=== PATIENT | male | born 1935 | race Hispanic/Latino ===

== ENCOUNTER 2019-10-21 07:18 | Outpatient (CLI) | payer MEDICARE ==
[2019-10-21 10:15] LABS: #Eosinphils 0.2 thou/uL (0.0-0.7); #Lymphocytes 2.1 thou/uL (1.20-3.40); #Monocytes 0.8 thou/uL (0.11-0.59); #Neutrophils 4.8 thou/uL (1.40-6.50); %Basophils 0.6 % (0.0-1.0); %Eosinophils 2.2 % (0.0-10.0); %Lymphocytes 27.1 % (21.0-51.0); %Monocytes 9.5 % (0.0-10.0); %Neutrophils 60.6 % (42.0-75.0); Hemoglobin 15.1 g/dL (14.0-18.0); Mean Corpuscular HGB CONC 32.9 g/dL (32.0-36.0); Mean Corpuscular Hemoglobin 30.3 pg (27.0-31.0); Mean Corpuscular Volume 91.9 fL (78.0-98.0); Mean Platelet Volume 8.3 fL (7.4-10.4); Platelet Count 222 thou/uL (130-400); RBC Distribution Width 12.2 % (11.5-14.5); Red Blood Cell (RBC) Count 4.98 mill/uL (4.70-6.10); White Blood Cell (WBC) Count 7.9 thou/uL (4.8-10.8)
[2019-10-21 10:43] LABS: ALT (SGPT) 16 U/L (8-55); AST (SGOT) 24 U/L (5-34); Albumin 4.1 g/dL (3.4-4.8); Alkaline Phosphatase 70 U/L (40-110); Anion Gap 12 mmol/L (10-20); BUN (Urea Nitrogen) 17 mg/dL (8.4-25.7); Bilirubin, Total 0.5 mg/dL (0.2-1.2); Calc. Creatinine Clearance 0 mL/min (70-130); Calcium 9.5 mg/dL (7.8-10.44); Carbon Dioxide 28 mmol/L (23-31); Chloride 100 mmol/L (98-107); Estimated GFR-MDRD 57; Globulin 3.6 g/dL (2.4-3.5); Glucose 101 mg/dL (83-110); Potassium 3.9 mmol/L (3.5-5.1); Protein, Total 7.7 g/dL (5.8-8.1); Sodium 136 mmol/L (136-145)
== END 2019-10-21 07:19 | disposition home or self-care (01) ==
LOC: LABBT 07:18
PROVIDERS: ATTEND Internal Medicine Cardiovascular Disease
DX: Z01.812 Encounter for preprocedural laboratory examination (principal); I35.0 Nonrheumatic aortic (valve) stenosis
CPT/HCPCS: 80053; 85025

== ENCOUNTER 2020-05-18 06:36 | Emergency (ER) | payer MEDICARE | END 2020-05-18 07:28 | disposition home or self-care (01) | LOC: ERS 06:36 | DX: I10 Essential (primary) hypertension (principal) | CPT/HCPCS: 99283 ==

== ENCOUNTER 2020-05-23 19:52 | Inpatient (IN) | payer MEDICARE, OTHER ==
[2020-05-23 20:53] LABS: #Basophils 0.1 thou/uL (0.0-0.2); #Eosinphils 0.2 thou/uL (0.0-0.7); #Lymphocytes 2.3 thou/uL (1.20-3.40); #Monocytes 0.6 thou/uL (0.11-0.59); #Neutrophils 4.2 thou/uL (1.40-6.50); %Basophils 0.9 % (0.0-1.0); %Eosinophils 2.7 % (0.0-10.0); %Lymphocytes 31.6 % (21.0-51.0); %Monocytes 7.9 % (0.0-10.0); %Neutrophils 56.9 % (42.0-75.0); Mean Corpuscular HGB CONC 34.1 g/dL (32.0-36.0); Mean Corpuscular Hemoglobin 32.1 pg (27.0-31.0); Mean Corpuscular Volume 94.2 fL (78.0-98.0); Mean Platelet Volume 8.6 fL (7.4-10.4); Platelet Count 205 thou/uL (130-400); RBC Distribution Width 12.6 % (11.5-14.5); Red Blood Cell (RBC) Count 4.98 mill/uL (4.70-6.10); White Blood Cell (WBC) Count 7.4 thou/uL (4.8-10.8)
--- NOTE | 2020-05-23 20:55 | RAD ---
Portable frontal chest radiograph: 05/23/2020 COMPARISON: 03/03/2008 HISTORY: Generalized weakness, chest pain FINDINGS: There is mild prominence of the cardiac silhouette and mild pulmonary vascular prominence w ith no pneumothorax or pleural fluid. No focal consolidation or alveolar edema. IMPRESSION: No focal consolidation or alveolar edema.
[2020-05-23 21:13] LABS: ALT (SGPT) 30 U/L (8-55); AST (SGOT) 36 U/L (5-34); Albumin 4.2 g/dL (3.4-4.8); Alkaline Phosphatase 99 U/L (40-110); Anion Gap 12 mmol/L (10-20); BUN (Urea Nitrogen) 25 mg/dL (8.4-25.7); Bilirubin, Total 0.8 mg/dL (0.2-1.2); Calc. Creatinine Clearance 0 mL/min (70-130); Calcium 9.5 mg/dL (7.8-10.44); Carbon Dioxide 28 mmol/L (23-31); Chloride 102 mmol/L (98-107); Estimated GFR-MDRD 43; Globulin 3.9 g/dL (2.4-3.5); Glucose 100 mg/dL (83-110); Potassium 3.7 mmol/L (3.5-5.1); Protein, Total 8.1 g/dL (5.8-8.1); Sodium 138 mmol/L (136-145)
[2020-05-23 21:35] LABS: CKMB 2.1 ng/mL (0-6.6)
[2020-05-23] MEDS ORDERED: Aspirin Chewable 81 MG TAB ONE (23:06)
[2020-05-23] MEDS ORDERED: Acetaminophen 325 MG TAB PO PRN (23:41)
[2020-05-23] MEDS ORDERED: Senokot S 8.6-50 MG TAB PO PRN (23:41)
[2020-05-24 00:43] LABS: Troponin I 0.053 ng/mL (< 0.028)
--- NOTE | 2020-05-24 01:32 | PDOC.HHP ---
Hospitalist HPI - History of Present Illness Light headedness / faint History of Present Illness: Mr Jesus is a very pleasant 84M who reports he was at home tonight watching TV when he started feeling lightheaded and felt like he was going to pass out. He denies any other symptoms. Reports he felt like this once, a long time ago but it went away and he did not do anything about it. He denies having a history of Afib/Aflutter. He reports Dr. Myles told him that one of his heart valves did not open/close all the way but as long as he did not get too exertional, he would be fine. He reports it has been almost a year since he has seen Dr. Myles. He does one have cardiac stent which was placed "many years ago". He takes HTN medications and an aspirin daily. Hospitalist ROS - Review of Systems Constitutional: denies: fever, chills, sweats, weakness, malaise, other Eyes: denies: pain, vision change, conjunctivae inflammation, eyelid inflammation, redness, other ENT: denies: ear pain, ear discharge, nose pain, nose discharge, nose congestion, mouth pain, mouth swelling, throat pain, throat swelling, other Respiratory: denies: cough, dry, shortness of breath, hemoptysis, SOB with excertion, pleuritic pain, sputum, wheezing, other Cardiovascular: reports: light headedness, other (near syncope) Gastrointestinal: denies: nausea, vomiting, abdominal pain, diarrhea, constipation, melena, hematochezia, other Genitourinary: denies: dysuria, frequency, incontinence, hematuria, retention, other Musculoskeletal: denies: neck pain, shoulder pain, arm pain, back pain, hand pain, leg pain, foot pain, other Neurological: denies: weakness, numbness, incoordination, change in speech, confusion, seizures, other Hospitalist History - Past Medical History Cardiac: reports: CAD, HTN, Valve insufficiency Pulmonary: reports: no pertinent history FIN[employer]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: no pertinent history Gastrointestinal: reports: no pertinent history Heme/Onc: reports: no pertinent history ENT: reports: no pertinent history Renal/: reports: no pertinent history, Chronic renal failure - Past Surgical History Other Surgical History: cardiac stent x1 - Family History Family History: reports: cardiac disorder - Social History Smoking Status: Never smoker Alcohol: reports: None, Occassional Drugs: reports: none Living Situation: With Family Activity level: independent ambulation - Exam General Appearance: awake alert Eye: PERRL ENT: normocephalic atraumatic Neck: supple, no JVD Heart: irregular Respiratory: CTAB, normal chest expansion Gastrointestinal: soft, non-tender Skin: normal turgor Neurological: normal sensation to touch Musculoskeletal: normal strength Psychiatric: normal affect, A&O x 3 Hospitalist Results - Labs Result Diagrams: 05/23/20 20:40 05/23/20 20:40 Lab results: WBC 7.4 thou/uL (4.8-10.8) 05/23/20 20:40 Hgb 16.0 g/dL (14.0-18.0) 05/23/20 20:40 Hct 47.0 % (42.0-52.0) 05/23/20 20:40 MCV 94.2 fL (78.0-98.0) 05/23/20 20:40 Plt Count 205 thou/uL (130-400) 05/23/20 20:40 Neutrophils % 56.9 % (42.0-75.0) 05/23/20 20:40 Sodium 138 mmol/L (136-145) 05/23/20 20:40 Potassium 3.7 mmol/L (3.5-5.1) 05/23/20 20:40 Chloride 102 mmol/L (98-107) 05/23/20 20:40 Carbon Dioxide 28 mmol/L (23-31) 05/23/20 20:40 BUN 25 mg/dL (8.4-25.7) 05/23/20 20:40 Creatinine 1.55 mg/dL (0.7-1.3) H 05/23/20 20:40 Glucose 100 mg/dL (83-110) 05/23/20 20:40 Calcium 9.5 mg/dL (7.8-10.44) 05/23/20 20:40 Total Bilirubin 0.8 mg/dL (0.2-1.2) 05/23/20 20:40 AST 36 U/L (5-34) H 05/23/20 20:40 ALT 30 U/L (8-55) 05/23/20 20:40 Alkaline Phosphatase 99 U/L (40-110) 05/23/20 20:40 CK-MB (CK-2) 2.1 ng/mL (0-6.6) 05/23/20 20:40 Troponin I 0.053 ng/mL (< 0.028) H 05/23/20 23:53 Serum Total Protein 8.1 g/dL (5.8-8.1) 05/23/20 20:40 Albumin 4.2 g/dL (3.4-4.8) 05/23/20 20:40 - EKG Interpretation EKG: HR 60 Atrial flutter with variable AV block, PVCs, ST depression V4-V6 Hospitalist H&P A/P - Problem (1) Hypertension Code(s): I10 - ESSENTIAL (PRIMARY) HYPERTENSION Status: Acute (2) Aortic valve insufficiency Code(s): I35.1 - NONRHEUMATIC AORTIC (VALVE) INSUFFICIENCY Status: Acute (3) Near syncope Status: Acute (4) CAD (coronary artery disease) Code(s): I25.10 - ATHSCL HEART DISEASE OF [place] CORONARY ARTERY W/O ANG PCTRS Status: Chronic (5) Atrial flutter Code(s): I48.92 - UNSPECIFIED ATRIAL FLUTTER Status: Acute (6) Kidney disease, chronic, stage III (GFR 30-59 ml/min) Code(s): N18.30 - CHRONIC KIDNEY DISEASE, STAGE 3 UNSPECIFIED Status: Acute - Plan Plan: Place on Telemetry Echocardiogram in AM Cardiology consult Trend troponins Restart home HTN meds Lovenox and SCDs for DVT prophalyxis; pepcid bid for PUD prevention Case discussed with Dr. Morales who agrees with plan
[2020-05-24 02:32] VITALS: BMI 25.0
[2020-05-24 02:51] LABS: #Basophils 0.1 thou/uL (0.0-0.2); #Eosinphils 0.1 thou/uL (0.0-0.7); #Lymphocytes 1.8 thou/uL (1.20-3.40); #Monocytes 0.7 thou/uL (0.11-0.59); #Neutrophils 5.2 thou/uL (1.40-6.50); %Basophils 1.2 % (0.0-1.0); %Eosinophils 1.8 % (0.0-10.0); %Monocytes 8.6 % (0.0-10.0); %Neutrophils 65.5 % (42.0-75.0); Hemoglobin 13.9 g/dL (14.0-18.0); Mean Corpuscular HGB CONC 32.7 g/dL (32.0-36.0); Mean Platelet Volume 8.6 fL (7.4-10.4); Platelet Count 200 thou/uL (130-400); RBC Distribution Width 12.6 % (11.5-14.5); Red Blood Cell (RBC) Count 4.47 mill/uL (4.70-6.10); White Blood Cell (WBC) Count 7.9 thou/uL (4.8-10.8)
[2020-05-24 03:08] LABS: ALT (SGPT) 25 U/L (8-55); AST (SGOT) 23 U/L (5-34); Albumin 3.5 g/dL (3.4-4.8); Alkaline Phosphatase 74 U/L (40-110); Anion Gap 14 mmol/L (10-20); BUN (Urea Nitrogen) 23 mg/dL (8.4-25.7); Bilirubin, Total 0.7 mg/dL (0.2-1.2); Calc. Creatinine Clearance 42 mL/min (70-130); Calcium 8.9 mg/dL (7.8-10.44); Carbon Dioxide 24 mmol/L (23-31); Chloride 105 mmol/L (98-107); Estimated GFR-MDRD 53; Globulin 3.1 g/dL (2.4-3.5); Glucose 99 mg/dL (83-110); Potassium 3.7 mmol/L (3.5-5.1); Protein, Total 6.6 g/dL (5.8-8.1); Sodium 139 mmol/L (136-145)
[2020-05-24 03:10] LABS: Troponin I 0.041 ng/mL (< 0.028)
[2020-05-24] MEDS ORDERED: Enoxaparin Sodium 40 MG/0.4 ML SYRINGE SC SCH (09:00)
[2020-05-24] MEDS: Lisinopril/Hydrochlorothiazide 20/25 mg Tablet PO SCH (09:16)
[2020-05-24] MEDS: Famotidine 20 MG TAB PO SCH (09:17)
[2020-05-24] MEDS: Aspirin 81 mg Enteric Coated Tablet PO SCH (09:17)
[2020-05-24 12:40] LABS: SARS-CoV-2 MS2 Positive; SARS-CoV-2 N Gene Negative; SARS-CoV-2 S Gene Negative; SARS-CoV-2 by NAA Not Detected (NotDetected); SARS-CoV-2 orf1ab Negative
--- NOTE | 2020-05-24 12:52 | PDOC.HOSPP ---
- Subjective Encounter Date: 05/24/20 Subjective: The patient denies any chest pain, dizziness, or palpitations. - Objective Vital Signs & Weight: Vital Signs (12 hours) Temp Pulse Resp BP BP BP BP 05/24/20 11:10 98.2 F 52 L 16 114/59 L 05/24/20 09:16 51 L 135/63 05/24/20 07:10 97.6 F 44 L 16 129/64 05/24/20 04:00 98.3 F 52 L 16 126/59 L 05/24/20 01:08 97.9 F 60 16 182/86 H Pulse Ox 05/24/20 11:10 97 05/24/20 09:16 05/24/20 07:10 97 05/24/20 04:00 97 05/24/20 01:08 96 Weight Weight 150 lb I&O: 05/23/20 05/24/20 05/25/20 06:59 06:59 06:59 Intake Total 240 Balance 240 Result Diagrams: 05/24/20 02:41 05/24/20 02:41 Hospitalist ROS - Medication Medications: Active Medications Generic Name Dose Route Start Last Admin Trade Name Freq PRN Reason Stop Dose Admin Aspirin 81 mg 05/24/20 09:00 05/24/20 09:17 Aspirin 81 Mg Enteric Coated Tablet PO 81 mg DAILY KATHERINE Administration Enoxaparin Sodium 40 mg 05/24/20 09:00 05/24/20 09:18 Enoxaparin Sodium 40 Mg/0.4 Ml Syringe SC 40 mg 0900 KATHERINE Administration Famotidine 20 mg 05/24/20 09:00 05/24/20 09:17 Famotidine 20 Mg Tab PO 20 mg QAM KATHERINE Administration Lisinopril/HCTZ 1 tab 05/24/20 09:00 05/24/20 09:16 Lisinopril/Hydrochlorothiazide 20/25 Mg Tablet PO 1 tab DAILY KATHERINE Administration - Exam General Appearance: awake alert ENT: normocephalic atraumatic Neck: supple, no JVD Respiratory: normal chest expansion, no tachypnea Extremities: no cyanosis, no clubbing Neurological: cranial nerve grossly intact, no focal deficits Hosp A/P (1) Bradycardia Code(s): R00.1 - BRADYCARDIA, UNSPECIFIED Status: Acute (2) Aortic valve insufficiency Code(s): I35.1 - NONRHEUMATIC AORTIC (VALVE) INSUFFICIENCY Status: Acute (3) Atrial flutter Code(s): I48.92 - UNSPECIFIED ATRIAL FLUTTER Status: Acute (4) Kidney disease, chronic, stage III (GFR 30-59 ml/min) Code(s): N18.30 - CHRONIC KIDNEY DISEASE, STAGE 3 UNSPECIFIED Status: Acute (5) Near syncope Status: Acute (6) CAD (coronary artery disease) Code(s): I25.10 - ATHSCL HEART DISEASE OF [place] CORONARY ARTERY W/O ANG PCTRS Status: Chronic - Plan New onset atrial flutter with variable block and bradycardic response causing dizziness. Hold chronotropic medications. Echocardiogram. Cardiology consultation.
[2020-05-24] MEDS: Enoxaparin Sodium 60 MG/0.6 ML SYRINGE SC SCH (21:02)
--- NOTE | 2020-05-25 01:22 | CON ---
DATE OF CONSULTATION: 05/24/2020 PRIMARY SHINGLE CUTTER: Fabrizio Myles MD REASON FOR CONSULTATION AND ADMISSION: Atrial fibrillation with a slow ventricular response. HISTORY OF PRESENT ILLNESS: Mr. Jesus is a delightful 84-year-old gentleman who has been doing well up until this admission. He had the sudden onset of weakness and fatigue. He knew something this did not seem right, started feeling lightheaded. He felt like he might even pass out. He went to the emergency room, was found to be in atrial fibrillation with a relatively slow ventricular response. No chest pain or pressure. PAST MEDICAL HISTORY: 1. History of coronary artery disease with previous stent implantation. 2. History of first-degree AV block. 3. History of nonrheumatic aortic valve stenosis. MEDICATIONS: Prior to admission: 1. Lisinopril/HCTZ. 2. Metoprolol succinate 25 mg. 3. Aspirin 81 mg daily. PREVIOUS EVALUATION: The patient had an echocardiogram done in 2018, ejection fraction 55% to 60%. aortic stenosis was noted. REVIEW OF SYSTEMS: CONSTITUTIONAL: No significant weight gain or loss of vision. No changes in hearing. PULMONARY: No changes in pulmonary. No cough or wheezing. CARDIAC: No chest pain. GASTROINTESTINAL: No nausea, vomiting, or diarrhea. PHYSICAL EXAMINATION: GENERAL: This is a very pleasant elderly gentleman, in no distress. He says he feels well. VITAL SIGNS: Blood pressure 130/60, pulse 52 irregular. LUNGS: Clear. CARDIAC: Irregularly irregular. Soft systolic murmur. No diastolic murmur. ABDOMEN: Soft and nontender. EXTREMITIES: Warm and dry. No clubbing, no cyanosis or edema. IMAGING: EKG reveals atrial fibrillation with a slow ventricular response. ASSESSMENT: 1. History of aortic stenosis. 2. New onset of atrial fibrillation with a slow rate (low ventricular response). 3. History first-degree atrioventricular block. PLAN: 1. Increased the Lovenox per kg twice a day. 2. Consideration for cardioversion. We will need transesophageal echo first. 3. Dr. Myles to return tomorrow to further evaluate this gentleman. 4. Echocardiogram revealed what appeared to be severe aortic stenosis. Job ID: [id number]
[2020-05-25] MEDS: Enoxaparin Sodium 60 MG/0.6 ML SYRINGE SC SCH ×2 (10:08→21:24)
[2020-05-25] MEDS: Lisinopril/Hydrochlorothiazide 20/25 mg Tablet PO SCH (10:09)
[2020-05-25] MEDS: Aspirin 81 mg Enteric Coated Tablet PO SCH (10:09)
[2020-05-25] MEDS: Famotidine 20 MG TAB PO SCH (10:09)
--- NOTE | 2020-05-25 12:50 | PDOC.HOSPP ---
- Subjective Encounter Date: 05/25/20 Subjective: No chest pain, palpitations, or shortness of breath. - Objective Vital Signs & Weight: Vital Signs (12 hours) Temp Pulse Resp BP Pulse Ox 05/25/20 11:40 98.9 F 51 L 16 118/56 L 97 05/25/20 10:09 50 L 05/25/20 07:45 98.0 F 50 L 16 153/77 H 97 05/25/20 04:00 98.2 F 61 18 130/62 96 Weight Weight 150 lb 12.8 oz I&O: 05/24/20 05/25/20 05/26/20 06:59 06:59 06:59 Intake Total 240 380 Balance 240 380 Result Diagrams: 05/24/20 02:41 05/24/20 02:41 Hospitalist ROS - Medication Medications: Active Medications Generic Name Dose Route Start Last Admin Trade Name Freq PRN Reason Stop Dose Admin Aspirin 81 mg 05/24/20 09:00 05/25/20 10:09 Aspirin 81 Mg Enteric Coated Tablet PO 81 mg DAILY KATHERINE Administration Enoxaparin Sodium 60 mg 05/24/20 21:00 05/25/20 10:08 Enoxaparin Sodium 60 Mg/0.6 Ml Syringe SC 60 mg 0900,2100 KATHERINE Administration Famotidine 20 mg 05/24/20 09:00 05/25/20 10:09 Famotidine 20 Mg Tab PO 20 mg QAM KATHERINE Administration Lisinopril/HCTZ 1 tab 05/24/20 09:00 05/25/20 10:09 Lisinopril/Hydrochlorothiazide 20/25 Mg Tablet PO 1 tab DAILY KATHERINE Administration - Exam General Appearance: awake alert ENT: normocephalic atraumatic Neck: supple, no JVD Heart: no gallops, irregular, murmur present Respiratory: normal chest expansion, no tachypnea Extremities: no cyanosis Neurological: cranial nerve grossly intact, no focal deficits Hosp A/P (1) Atrial fibrillation with slow ventricular response Code(s): I48.91 - UNSPECIFIED ATRIAL FIBRILLATION Status: Acute (2) Bradycardia Code(s): R00.1 - BRADYCARDIA, UNSPECIFIED Status: Acute (3) Aortic valve insufficiency Code(s): I35.1 - NONRHEUMATIC AORTIC (VALVE) INSUFFICIENCY Status: Acute (4) Kidney disease, chronic, stage III (GFR 30-59 ml/min) Code(s): N18.30 - CHRONIC KIDNEY DISEASE, STAGE 3 UNSPECIFIED Status: Acute (5) Near syncope Status: Acute (6) CAD (coronary artery disease) Code(s): I25.10 - ATHSCL HEART DISEASE OF [place] CORONARY ARTERY W/O ANG PCTRS Status: Chronic (7) Aortic stenosis Code(s): I35.0 - NONRHEUMATIC AORTIC (VALVE) STENOSIS Status: Acute - Plan New onset atrial flutter/fibrillation with slow ventricular response. Holding chronotropic medications. The patient is on therapeutic Lovenox. Awaiting cardiology evaluation.
[2020-05-25] MEDS ORDERED: Communication Order-Pharmacy FS SCH (14:00)
--- NOTE | 2020-05-25 14:04 | PRG ---
DATE OF SERVICE: 05/25/2020 SUBJECTIVE: Mr. Jesus is doing better. Rate appears to be controlled. Mr. Jesus does have a previous history of severe aortic stenosis on echo. He recently had a presyncopal event. OBJECTIVE: VITAL SIGNS: Blood pressure pulse 51, temperature 98.9. LUNGS: Clear to auscultation. HEART: Irregularly irregular. ABDOMEN: Soft, nontender, nondistended. EXTREMITIES: No edema. IMPRESSION: 1. New-onset atrial fibrillation. 2. Severe aortic stenosis. 3. Coronary artery disease. 4. Status post stent placement. RECOMMENDATIONS: I have had much difficulty on trying to get Mr. Jesus's workup for aortic stenosis. He has had symptoms as an outpatient, but has opted to not proceed with any further testing. At this point, I would recommend coronary angiography plus PCI. I discussed procedure in full detail with Mr. Jesus. Risks include, but not limited to the following: , stroke, DC, need for emergency surgery, loss of limb, bleeding, and infection, as well as a reaction to the dye causing kidney failure and needing long-term dialysis. I also discussed the risks of PCI to include all of the above including coronary dissection and perforation in addition to acute stent thrombosis and restenosis. All questions about the procedure were answered. Given the above, the patient agreed to proceed with coronary angiography and possible PCI. He gave consent. All questions answered. Given the above, the patient agreed to proceed with a procedure. We will also proceed with aortic stenosis study. Job ID: [id number]
[2020-05-26] MEDS: Sodium Chloride 0.9% 1,000 ML IV SCH ×2 (05:53→17:45)
[2020-05-26] MEDS ORDERED: Fentanyl 100 MCG/2 ML VIAL ONE (07:20)
[2020-05-26] MEDS ORDERED: Midazolam HCl 2 mg/2 ml Vial ONE (07:20)
[2020-05-26] MEDS ORDERED: Acetaminophen/Codeine 30-300mg Tablet PO PRN ×2 (08:04)
[2020-05-26] MEDS ORDERED: Nitroglycerin 0.4 MG TAB (25 Tab Bottle) SL PRN (08:04)
[2020-05-26] MEDS ORDERED: Sodium Chloride 0.9% 200 ML IV PRN (08:04)
[2020-05-26] MEDS ORDERED: Iopamidol 370 76% 100 ML VIAL ONE ×2 (09:03→10:45)
[2020-05-26] MEDS: Lisinopril/Hydrochlorothiazide 20/25 mg Tablet PO SCH (09:14)
[2020-05-26] MEDS: Famotidine 20 MG TAB PO SCH (09:15)
[2020-05-26] MEDS: Aspirin 81 mg Enteric Coated Tablet PO SCH (09:15)
--- NOTE | 2020-05-26 14:28 | PDOC.HOSPP ---
- Subjective Encounter Date: 05/26/20 Subjective: No new complaints. - Objective Vital Signs & Weight: Vital Signs (12 hours) Temp Pulse Resp BP Pulse Ox 05/26/20 12:00 98.5 F 57 L 16 140/67 98 05/26/20 09:18 97.7 F 58 L 16 116/56 L 98 05/26/20 04:12 97.4 F L 43 L 16 144/69 H 96 Weight Admit Weight 150 lb Weight 148 lb I&O: 05/25/20 05/26/20 05/27/20 06:59 06:59 06:59 Intake Total 380 240 Balance 380 240 Result Diagrams: 05/24/20 02:41 05/24/20 02:41 Hospitalist ROS - Medication Medications: Active Medications Generic Name Dose Route Start Last Admin Trade Name Freq PRN Reason Stop Dose Admin Aspirin 81 mg 05/24/20 09:00 05/26/20 09:15 Aspirin 81 Mg Enteric Coated Tablet PO 81 mg DAILY KATHERINE Administration Famotidine 20 mg 05/24/20 09:00 05/26/20 09:15 Famotidine 20 Mg Tab PO 20 mg QAM KATHERINE Administration Sodium Chloride 1,000 mls @ 100 mls/hr 05/26/20 06:00 05/26/20 05:53 Normal Saline 0.9% IV 1,000 mls .Q10H KATHERINE Administration - Exam General Appearance: awake alert ENT: normocephalic atraumatic Neck: supple, no JVD Heart: irregular Respiratory: normal chest expansion, no tachypnea Extremities: no cyanosis, no clubbing Neurological: cranial nerve grossly intact, no focal deficits Hosp A/P (1) Atrial fibrillation with slow ventricular response Code(s): I48.91 - UNSPECIFIED ATRIAL FIBRILLATION Status: Acute (2) Bradycardia Code(s): R00.1 - BRADYCARDIA, UNSPECIFIED Status: Acute (3) Aortic valve insufficiency Code(s): I35.1 - NONRHEUMATIC AORTIC (VALVE) INSUFFICIENCY Status: Acute (4) Kidney disease, chronic, stage III (GFR 30-59 ml/min) Code(s): N18.30 - CHRONIC KIDNEY DISEASE, STAGE 3 UNSPECIFIED Status: Acute (5) Near syncope Status: Acute (6) CAD (coronary artery disease) Code(s): I25.10 - ATHSCL HEART DISEASE OF [place] CORONARY ARTERY W/O ANG PCTRS Status: Chronic (7) Aortic stenosis Code(s): I35.0 - NONRHEUMATIC AORTIC (VALVE) STENOSIS Status: Acute - Plan New onset atrial flutter/fibrillation with slow ventricular response. Holding chronotropic medications. The patient is on therapeutic Lovenox. Status post cardiac cath showing three-vessel disease and severe aortic stenosis. Cardiothoracic surgery were consulted for further evaluation.
[2020-05-26 21:06] LABS: #Basophils 0.1 thou/uL (0.0-0.2); #Eosinphils 0.1 thou/uL (0.0-0.7); #Lymphocytes 1.6 thou/uL (1.20-3.40); #Monocytes 0.9 thou/uL (0.11-0.59); #Neutrophils 6.7 thou/uL (1.40-6.50); %Basophils 0.5 % (0.0-1.0); %Eosinophils 1.3 % (0.0-10.0); %Lymphocytes 17.4 % (21.0-51.0); %Monocytes 9.6 % (0.0-10.0); %Neutrophils 71.2 % (42.0-75.0); Hemoglobin 14.1 g/dL (14.0-18.0); Mean Corpuscular HGB CONC 33.1 g/dL (32.0-36.0); Mean Corpuscular Hemoglobin 31.1 pg (27.0-31.0); Mean Corpuscular Volume 93.7 fL (78.0-98.0); Mean Platelet Volume 8.7 fL (7.4-10.4); Platelet Count 196 thou/uL (130-400); RBC Distribution Width 12.5 % (11.5-14.5); Red Blood Cell (RBC) Count 4.55 mill/uL (4.70-6.10); White Blood Cell (WBC) Count 9.4 thou/uL (4.8-10.8)
[2020-05-26 21:27] LABS: Anion Gap 10 mmol/L (10-20); BUN (Urea Nitrogen) 19 mg/dL (8.4-25.7); Calc. Creatinine Clearance 47 mL/min (70-130); Calcium 8.4 mg/dL (7.8-10.44); Carbon Dioxide 28 mmol/L (23-31); Chloride 105 mmol/L (98-107); Estimated GFR-MDRD 60; Glucose 100 mg/dL (83-110); Magnesium 1.9 mg/dL (1.6-2.6); Potassium 3.6 mmol/L (3.5-5.1); Sodium 139 mmol/L (136-145)
--- NOTE | 2020-05-26 22:43 | ULT ---
BILATERAL CAROTID DUPLEX ULTRASOUND: HISTORY: Bilateral carotid bruits with dizziness TECHNIQUE: Grayscale, color-flow and spectral Doppler ultrasound imaging of the extracranial carotid artery syst ems and vertebral arteries was performed bilaterally. FINDINGS: There is moderate to severe partially calcified atherosclerotic plaque involving the proximal right I CA, distal right common carotid artery and right carotid bulb. There is mild to moderate atherosclerotic plaque involving the proximal left ICA and left carotid bulb. The peak systolic velocity in the right ICA measures 81 cm/s. The peak systolic velocity in the righ t CCA measures 49.9 cm/s. The peak systolic velocity in the left ICA measures 56.4 cm/s. The peak systolic velocity in the l eft CCA measures 65.9 cm/s. The right IC/CC ratio is1.62. The left IC/CC ratio is 1.01. Vertebral flow: antegrade, bilaterally. . IMPRESSION: No hemodynamically significant stenosis of Both ICAs.
--- NOTE | 2020-05-26 23:10 | CT ---
CTA OF THE CHEST WITH AND WITHOUT IV CONTRAST AND 3-D REFORMATTED IMAGING INDICATION: Preoperative evaluation for aortic stenosis COMPARISON: None FINDINGS: Aorta: There are prominent calcifications involving the aortic valve. The ascending aorta measures 3. 3 cm at the level of the main pulmonary artery. The aortic arch measures 2.5 cm. The descending thoracic aorta measures 2.5 cm. No acute aortic dissection, aneurysm or occlusion is evident. Central pulmonary artery: No central pulmonary embolus demonstrated. Lungs: There are peripheral interstitial opacities with subpleural bronchiectasis suspicious for burks ges of interstitial lung disease. There are enlarged lymph nodes within the mediastinum which are nonspecific. There is an AP window lymph node measuring 1.2 cm. There is a right paratracheal lymph n ode measuring 1.2 cm. Upper abdomen: There are calcified granuloma within the liver and spleen. Adrenal glands are normal a ppearing. Osseous structures: No acute osseous abnormality. IMPRESSION: 1. No evidence for aortic aneurysm or dissection. There are prominent calcifications involving the ao rtic valve. Echocardiography may be better helpful at evaluating aortic valvular function. 2. 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 3. Mildly prominent mediastinal lymph nodes.
--- NOTE | 2020-05-27 00:37 | CON ---
DATE OF CONSULTATION: 05/26/2020 REASON FOR CONSULTATION: Evaluate patient for coronary artery bypass grafting and aortic valve replacement. HISTORY OF PRESENT ILLNESS: Mr. Jesus came in to the emergency department according to him because his blood pressure was high in the 200 range, but according to the chart, he came in because he had near syncope. He says that he did not have anything that was bad, and he was not worried about that issue. He also had atrial fibrillation with slow ventricular response. He has a history of aortic stenosis. While he has been here, he has had an echocardiogram performed which shows an ejection fraction of 55% to 60%. His peak velocity across the aortic valve is 108 cm/second. The [id number] gradient is 54 and mean gradient 36. The aortic valve was noted to be stenotic and calcified. The aortic valve area on echo is 2.49. He underwent cardiac catheterization today. Wjzw-fk-snee gradient today across the aortic valve is 38 with a mean gradient of 41. The valve area was computed at 0.35. 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 On the left system, he has tandem LAD lesions. He has a ramus with a proximal severe stenosis. He has an occluded circumflex with no target noted. I have been asked to see and discuss aortic valve replacement and coronary artery bypass grafting. PAST MEDICAL HISTORY: 1. Aortic stenosis. 2. Coronary artery disease. 3. History of first-degree AV block. 4. Atrial fibrillation. PAST SURGICAL HISTORY: None. CURRENT MEDICATIONS: 1. Aspirin 81 mg daily. 2. Metoprolol 25 mg daily. 3. Lisinopril/hydrochlorothiazide daily. REVIEW OF SYSTEMS: A 10-point review of systems is performed. It is negative except as above. PHYSICAL EXAMINATION: GENERAL: This is a well-developed, well-nourished man, resting comfortably on the telemetry unit. VITALS: His height 5 feet 5 inches, weight is 148 pounds, BSA is 1.75. Temperature is 98.4, pulse is 59 and regular, and blood pressure is 154/74. HEENT: Sclerae nonicteric. Pupils are equal and round bilaterally. NECK: Supple. He has soft bilateral carotid bruits. CHEST: Clear bilaterally. HEART: Rhythm is regular. He has a soft aortic stenosis murmur. ABDOMEN: Soft and nontender. EXTREMITIES: No edema. VASCULAR: Palpable carotid, radial, and femoral pulses bilaterally. LABORATORY DATA: Of note, hemoglobin is 13.9, platelet count is 200,000. Potassium is 3.7, creatinine is 1.29. His COVID test is negative. ASSESSMENT/PLAN: Severe aortic stenosis by echocardiogram and catheterization. He also has 3-vessel coronary artery disease. I have discussed aortic valve replacement and coronary artery bypass grafting. Plan would be to replace his aortic valve with a bioprosthetic valve and make bypasses to the ramus and potentially the LAD twice. Would also ligate the LA appendage and do epicardial maze. Risks, benefits, and options have been discussed with him. The patient has told me that he does not have time right now to pursue surgical treatment. He is very busy with things at home and taking care of his friend whom he lives with. I have suggested that we get a CT scan of his chest a carotid ultrasound tomorrow, and he said that he will call me if and when he decides he wants to proceed with surgery. Job ID: [id number] [facility]Ger
[2020-05-27 04:20] LABS: Hemoglobin 13.9 g/dL (14.0-18.0); Platelet Count 181 thou/uL (130-400)
[2020-05-27] MEDS: Sodium Chloride 0.9% 1,000 ML IV SCH (06:06)
[2020-05-27] MEDS ORDERED: Lisinopril/Hydrochlorothiazide 20 mg/12.5 mg Tablet PO SCH (09:00)
[2020-05-27] MEDS: Famotidine 20 MG TAB PO SCH (09:13)
[2020-05-27] MEDS: Aspirin 81 mg Enteric Coated Tablet PO SCH (09:13)
[2020-05-27 11:21] VITALS: BP 141/63; TEMP 97.5
--- NOTE | 2020-05-27 12:54 | PRG ---
DATE OF SERVICE: 05/27/2020 SUBJECTIVE: Mr. Jesus is doing well. No current complaints. He continues to be in atrial fibrillation. OBJECTIVE: VITAL SIGNS: Blood pressure 141/63, pulse 53, temperature 97.5. LUNGS: Clear to auscultation. HEART: Irregularly irregular. ABDOMEN: Soft, nontender, nondistended. EXTREMITIES: No edema. IMPRESSION: 1. Severe aortic stenosis. 2. Severe three-vessel coronary artery disease. 3. New onset atrial fibrillation, rate controlled. RECOMMENDATIONS: Mr. Jesus has opted to not proceed with bypass surgery or aortic valve replacement. The patient understands the risk of sudden cardiac and recurrent syncope in addition to heart failure. He states he has several issues that he needs to address while at home prior to proceeding. Unfortunately, it has been very difficult to try and get Mr. Bimal Jesus to proceed with treatment as an outpatient to address his aortic stenosis. After discussing the risks and benefits, he has opted to return as an outpatient. We therefore recommend Eliquis 5 mg p.o. b.i.d. to prevent stroke. Risks and benefits discussed with Mr. Jesus. Samples have been provided. Would continue low-dose aspirin in addition to lisinopril/hydrochlorothiazide. We will avoid beta-paulette therapy currently due to bradycardia. Plan is to follow up with Mr. Jesus in 1 week. Okay from my standpoint to discharge home. Job ID: [id number]
--- NOTE | 2020-05-28 01:19 | DIS ---
DATE OF ADMISSION: 05/24/2020 DATE OF DISCHARGE: 05/27/2020 DISCHARGE DIAGNOSES: 1. New onset atrial fibrillation with slow ventricular response. 2. Severe aortic stenosis. 3. Severe 3-vessel coronary artery disease. DISCHARGE MEDICATIONS: 1. Eliquis 5 mg orally twice daily. 2. Aspirin 81 mg orally daily. 3. Lisinopril-hydrochlorothiazide 20/25 mg orally daily. HISTORY OF PRESENT ILLNESS AND HOSPITAL COURSE: The patient is an 84-year-old male with past medical history of coronary artery disease, AV block, and aortic valve stenosis who presented to the hospital due to weakness and fatigue. The patient felt lightheaded and almost passed out. In the ER, he was found to be in atrial fibrillation with slow ventricular response. His beta paulette were placed on hold and he was admitted to the hospital for further management. Patient was evaluated by Cardiology and a cardiac catheterization reveal presence of 3-vessel coronary artery disease in addition to severe aortic stenosis. Aortic valve replacement and CABG were suggested to the patient, but he decided not to pursue that at this time. Outpatient followup with PCP and Cardiology recommended. Job ID: [id number]
--- NOTE | 2020-05-29 05:21 | PQF ---
Dear : Florencio Ho Date 05/29/20 Please exercise your independent, professional judgment in responding to the clarification form. Clinical indicators are provided on the bottom of this form for your review Can you please further clarify the diagnosis of the patient? Please check appropriate box(es): AMI TYPE: [ ] Type 1 NE (NSTEMI) [ > ] Type 2 NE (T2MI) secondary to: Aortic stenosis [ ] Insignificant ECG findings [ ] Other: [ ] Unable to determine Physician Signature: Date/Time: For continuity of documentation, please document condition throughout progress notes and discharge summary. Thank You. To be completed by CDI/Coding staff for physician review: Present Clinical Indicators - Signs / Symptoms / Labs Results and Location in Medical Record [ x ] ST Depression in V4 through V6 and aVL ED Provider pg.2 [ x ] Overall impression is atrial flutter with variable block ED Provider pg.2 [ x ] Lateral ischemia ED Provider pg.2 [ x ] Troponin elevation ED Provider pg.2 [ x ] Troponin I: 0.054H, 0.053H, 0.041H Laboratory [ x ] Trend troponins H and P pg.4 Present Risk Factors Results and Location in Medical Record [ x ] Afib H and P pg.1 [ x ] CAD H and P pg.1 [ x ] Hx of first degree block Consult pg.2 [ x ] Hx of aortic stenosis Consult pg.2 [ x ] 84 years old H and P pg.1 [ x ] HTN H and P pg.1 Present Treatments Results and Location in Medical Record [ x ] Cardiac characterization 05/24 [ x ] Echocardiogram 05/24 [ x ] Chest X ray 05/23 [ x ] ECG ED Provider pg.2 [ x ] IV Fluids MAR [ x ] Cardiology Consult Dr. Courtney 05/24 [ x ] Aspirin 81 mg PO MAR [ x ] Nitroglycerin 0.4mg SL OCT CD[facility] [employer] Specialist Signature: Gordon Weaver Phone #: ext [phone] Date 05/29 This is a permanent part of the Medical Record [facility]
== END 2020-05-27 12:38 | disposition home or self-care (01) | DRG 282 ==
LOC: ERS 19:52 → 2NO 23:25 → OBSVTOIN 05-24 14:10
PROVIDERS: ADMIT Internal Medicine; ATTEND Internal Medicine
PROC: 4A023N8 Measurement of Cardiac Sampling and Pressure, Bilateral, Percutaneous Approach (ICD-10-PCS; principal; 2020-05-26)
PROC: B2161ZZ Fluoroscopy of Right and Left Heart using Low Osmolar Contrast (ICD-10-PCS; 2020-05-26)
DX: I48.92 Unspecified atrial flutter (principal); I21.A1 Myocardial infarction type 2; I48.91 Unspecified atrial fibrillation; I35.0 Nonrheumatic aortic (valve) stenosis; I25.10 Atherosclerotic heart disease of native coronary artery without angina pectoris; I35.1 Nonrheumatic aortic (valve) insufficiency; I12.9 Hypertensive chronic kidney disease with stage 1 through stage 4 chronic kidney disease, or unspecified chronic kidney disease; N18.30 Chronic kidney disease, stage 3 unspecified; Z20.828 Contact with and (suspected) exposure to other viral communicable diseases; Z79.899 Other long term (current) drug therapy; Z79.82 Long term (current) use of aspirin
CPT/HCPCS: 36415; 71045; 71275; 76942; 80048; 80053; 82553; 82565; 83735; 83880; 84484; 85014; 85018; 85025; 85049; 87635; 93005; 93306; 93460; 93561; 93880; 94760; 96372; 99152; 99153; G0378; J1644; J1650; J2250; J3010; Q9967; U0003

== ENCOUNTER 2021-01-21 01:47 | Observation (INO) | payer MEDICARE ==
[2021-01-21 02:45] LABS: #Eosinphils 0.1 thou/uL (0.0-0.7); #Lymphocytes 1.8 thou/uL (1.20-3.40); #Monocytes 0.6 thou/uL (0.11-0.59); #Neutrophils 6.8 thou/uL (1.40-6.50); %Basophils 0.5 % (0.0-1.0); %Eosinophils 1.1 % (0.0-10.0); %Lymphocytes 19.3 % (21.0-51.0); %Monocytes 6.6 % (0.0-10.0); %Neutrophils 72.5 % (42.0-75.0); Hemoglobin 16.4 g/dL (14.0-18.0); Mean Platelet Volume 8.8 fL (7.4-10.4); Platelet Count 182 thou/uL (130-400); RBC Distribution Width 13.3 % (11.5-14.5); Red Blood Cell (RBC) Count 4.96 mill/uL (4.70-6.10); White Blood Cell (WBC) Count 9.4 thou/uL (4.8-10.8)
[2021-01-21 03:05] LABS: ALT (SGPT) 19 U/L (8-55); AST (SGOT) 22 U/L (5-34); Alkaline Phosphatase 59 U/L (40-110); Anion Gap 16 mmol/L (10-20); BUN (Urea Nitrogen) 31 mg/dL (8.4-25.7); Bilirubin, Total 2.1 mg/dL (0.2-1.2); Calc. Creatinine Clearance 0 mL/min (70-130); Calcium 9.6 mg/dL (7.8-10.44); Carbon Dioxide 24 mmol/L (23-31); Chloride 103 mmol/L (98-107); Globulin 3.3 g/dL (2.4-3.5); Glucose 117 mg/dL (83-110); Potassium 3.7 mmol/L (3.5-5.1); Protein, Total 7.3 g/dL (5.8-8.1); Sodium 139 mmol/L (136-145)
[2021-01-21 03:28] LABS: CKMB 2.7 ng/mL (0-6.6)
[2021-01-21] MEDS ORDERED: Furosemide 20 MG/2 ML VIAL ONE ×2 (04:13→04:18)
[2021-01-21] MEDS ORDERED: Aspirin Chewable 81 MG TAB ONE (04:13)
[2021-01-21] MEDS ORDERED: Acetaminophen 325 MG TAB PO PRN (04:35)
[2021-01-21] MEDS ORDERED: hydrALAZINE 20 MG/ML VIAL SLOW IVP PRN (04:57)
[2021-01-21 05:44] VITALS: BMI 21.4
[2021-01-21 06:37] LABS: Prothrombin Time 22.9 sec (12.0-14.7)
[2021-01-21 06:38] LABS: PTT 35.9 sec (22.9-36.1)
[2021-01-21 06:51] LABS: Troponin I 0.088 ng/mL (< 0.028)
[2021-01-21 13:14] LABS: Troponin I 0.076 ng/mL (< 0.028)
[2021-01-21] MEDS ORDERED: Furosemide 20 MG/2 ML VIAL SLOW IVP SCH (14:00)
[2021-01-21] MEDS ORDERED: Apixaban 2.5 MG TAB PO SCH (21:00)
[2021-01-22] MEDS ORDERED: Aspirin 81 mg Enteric Coated Tablet PO SCH (09:00)
== END 2021-01-21 13:25 | disposition left against medical advice (07) ==
LOC: ERS 01:47 → ERHOLD 04:04
PROVIDERS: ADMIT Internal Medicine; ATTEND Internal Medicine
DX: R06.02 Shortness of breath (principal); N17.9 Acute kidney failure, unspecified; I48.0 Paroxysmal atrial fibrillation; I12.9 Hypertensive chronic kidney disease with stage 1 through stage 4 chronic kidney disease, or unspecified chronic kidney disease; N18.30 Chronic kidney disease, stage 3 unspecified; I25.10 Atherosclerotic heart disease of native coronary artery without angina pectoris; I35.0 Nonrheumatic aortic (valve) stenosis; R77.8 Other specified abnormalities of plasma proteins; Z79.01 Long term (current) use of anticoagulants; Z87.891 Personal history of nicotine dependence; Z95.5 Presence of coronary angioplasty implant and graft; Z53.29 Procedure and treatment not carried out because of patient's decision for other reasons
CPT/HCPCS: 36415; 71045; 80053; 82553; 83880; 84484; 85025; 85610; 85730; 93005; 96374; J1940

== ENCOUNTER 2021-04-16 14:10 | Emergency (ER) | payer MEDICARE ==
[2021-04-16 16:05] LABS: #Eosinphils 0.1 thou/uL (0.0-0.7); #Lymphocytes 1.4 thou/uL (1.20-3.40); #Monocytes 0.5 thou/uL (0.11-0.59); #Neutrophils 4.9 thou/uL (1.40-6.50); %Basophils 0.7 % (0.0-1.0); %Eosinophils 0.8 % (0.0-10.0); %Lymphocytes 20.9 % (21.0-51.0); %Monocytes 6.7 % (0.0-10.0); %Neutrophils 70.9 % (42.0-75.0); Hemoglobin 15.2 g/dL (14.0-18.0); Mean Corpuscular HGB CONC 31.6 g/dL (32.0-36.0); Mean Platelet Volume 8.5 fL (7.4-10.4); Platelet Count 208 thou/uL (130-400); RBC Distribution Width 13.8 % (11.5-14.5); White Blood Cell (WBC) Count 6.9 thou/uL (4.8-10.8)
[2021-04-16 16:26] LABS: ALT (SGPT) 17 U/L (8-55); AST (SGOT) 21 U/L (5-34); Albumin 3.5 g/dL (3.4-4.8); Alkaline Phosphatase 95 U/L (40-110); Anion Gap 16 mmol/L (10-20); BUN (Urea Nitrogen) 31 mg/dL (8.4-25.7); Bilirubin, Total 1.3 mg/dL (0.2-1.2); Calc. Creatinine Clearance 0 mL/min (70-130); Calcium 9.4 mg/dL (7.8-10.44); Carbon Dioxide 27 mmol/L (23-31); Chloride 102 mmol/L (98-107); Globulin 2.9 g/dL (2.4-3.5); Glucose 108 mg/dL (83-110); Potassium 3.5 mmol/L (3.5-5.1); Protein, Total 6.4 g/dL (5.8-8.1); Sodium 141 mmol/L (136-145)
[2021-04-16 18:32] LABS: CKMB 2.6 ng/mL (0-6.6)
== END 2021-04-16 18:33 | disposition home or self-care (01) ==
LOC: ERS 14:10
DX: R42 Dizziness and giddiness (principal); Z79.899 Other long term (current) drug therapy; Z79.82 Long term (current) use of aspirin; Z79.01 Long term (current) use of anticoagulants; I10 Essential (primary) hypertension
CPT/HCPCS: 36415; 71045; 80053; 82553; 83880; 84484; 85025; 93005

== ENCOUNTER 2021-07-12 11:08 | Emergency (ER) | payer MEDICARE | END 2021-07-12 11:17 | disposition left against medical advice (07) | LOC: ERS 11:08 | DX: Z53.21 Procedure and treatment not carried out due to patient leaving prior to being seen by health care provider (principal) ==

== ENCOUNTER 2021-07-13 06:49 | Emergency (ER) | payer MEDICARE | END 2021-07-13 07:30 | disposition home or self-care (01) | LOC: ERS 06:49 | DX: L53.8 Other specified erythematous conditions (principal); I10 Essential (primary) hypertension | CPT/HCPCS: 99283 ==

== ENCOUNTER 2021-07-20 11:24 | Inpatient (IN) | payer MEDICARE ==
[2021-07-20] MEDS ORDERED: Dextrose 50% Abboject 50 ML SYRINGE ONE (12:14)
[2021-07-20 12:30] LABS: #Lymphocytes 1.1 thou/uL (1.20-3.40); #Monocytes 0.6 thou/uL (0.11-0.59); #Neutrophils 9.5 thou/uL (1.40-6.50); %Basophils 0.4 % (0.0-1.0); %Eosinophils 0.3 % (0.0-10.0); %Lymphocytes 9.4 % (21.0-51.0); %Monocytes 5.2 % (0.0-10.0); %Neutrophils 84.7 % (42.0-75.0); Hemoglobin 12.7 g/dL (14.0-18.0); Mean Corpuscular HGB CONC 33.7 g/dL (32.0-36.0); Mean Corpuscular Hemoglobin 33.1 pg (27.0-31.0); Mean Corpuscular Volume 98.4 fL (78.0-98.0); Mean Platelet Volume 8.9 fL (7.4-10.4); Platelet Count 206 thou/uL (130-400); RBC Distribution Width 12.9 % (11.5-14.5); Red Blood Cell (RBC) Count 3.83 mill/uL (4.70-6.10); White Blood Cell (WBC) Count 11.2 thou/uL (4.8-10.8)
[2021-07-20 12:57] LABS: PTT 59.3 sec (22.9-36.1)
[2021-07-20 12:58] LABS: ALT (SGPT) 17 U/L (8-55); AST (SGOT) 24 U/L (5-34); Albumin 3.2 g/dL (3.4-4.8); Alkaline Phosphatase 70 U/L (40-110); Anion Gap 17 mmol/L (10-20); BUN (Urea Nitrogen) 75 mg/dL (8.4-25.7); Bilirubin, Total 0.7 mg/dL (0.2-1.2); Calc. Creatinine Clearance 0 mL/min (70-130); Calcium 9.5 mg/dL (7.8-10.44); Carbon Dioxide 23 mmol/L (23-31); Chloride 99 mmol/L (98-107); Globulin 3.3 g/dL (2.4-3.5); Glucose 115 mg/dL (83-110); Magnesium 2.5 mg/dL (1.6-2.6); Potassium 4.7 mmol/L (3.5-5.1); Protein, Total 6.5 g/dL (5.8-8.1); Sodium 134 mmol/L (136-145)
[2021-07-20 12:58] LABS: Prothrombin Time 100.4 sec (12.0-14.7)
[2021-07-20 12:59] LABS: INR-International Normal Ratio 12.8
[2021-07-20 13:29] LABS: CKMB 7.9 ng/mL (0-6.6)
[2021-07-20] MEDS ORDERED: Cefepime 2 GM VIAL ONE (13:35)
[2021-07-20] MEDS ORDERED: Vancomycin 1.5 GRAM/300 ML BAG 1.5 GM in Premix Bag 1 BAG IVPB SCH (14:30)
[2021-07-20 15:29] LABS: Bilirubin Negative (Negative); Blood, Urine Negative (Negative); Clarity Clear (Clear); Glucose, Urine (Dipstick) Normal (Negative); Ketone, Urine Negative (Negative); Leukocyte 500 Leu/uL (Negative); Nitrite Negative (Negative); Protein, Urine (Dipstick) 10 mg/dL (Neg-Trace); RBC/HPF 0-3 HPF (0-3); Specific Gravity, Urine 1.022 (1.002-1.036); Squamous Epithelial 0-3 HPF (0-3)
[2021-07-20 15:32] LABS: Bacteria/HPF 1+ HPF (None Seen)
[2021-07-20 15:49] LABS: Lactic Acid 3.2 mmol/L (0.5-2.2)
[2021-07-20] MEDS ORDERED: Phytonadione 10 MG/ML AMP PO SCH (17:00)
[2021-07-20] MEDS ORDERED: FLU VACC QS2021-22(65YR UP)/PF 240 MCG/0.7 ML SYRINGE IM ONE (17:15)
[2021-07-20] MEDS ORDERED: Phytonadione 5 MG TAB PO SCH (18:00)
[2021-07-20] MEDS: Sodium Chloride 0.9% 1,000 ML IV SCH (18:20)
[2021-07-20 19:01] LABS: Troponin I 0.639 ng/mL (< 0.028)
[2021-07-20 19:41] LABS: SARS-CoV-2 NAA Rapid Test Not Detected (NotDetected)
[2021-07-20] MEDS: Rosuvastatin 20 MG TAB PO SCH (20:26)
[2021-07-20] MEDS: Pantoprazole 40 MG VIAL IVP SCH (20:26)
[2021-07-20 20:59] LABS: Troponin I 0.781 ng/mL (< 0.028)
[2021-07-20] MEDS ORDERED: Furosemide 20 MG TAB PO SCH (21:00)
[2021-07-21 03:43] LABS: #Monocytes 0.5 thou/uL (0.11-0.59); #Neutrophils 6.9 thou/uL (1.40-6.50); %Eosinophils 0.3 % (0.0-10.0); %Monocytes 5.7 % (0.0-10.0); Mean Corpuscular HGB CONC 33.8 g/dL (32.0-36.0); Mean Corpuscular Hemoglobin 33.5 pg (27.0-31.0); Mean Platelet Volume 9.2 fL (7.4-10.4); Platelet Count 182 thou/uL (130-400); Red Blood Cell (RBC) Count 3.29 mill/uL (4.70-6.10); White Blood Cell (WBC) Count 8.4 thou/uL (4.8-10.8)
[2021-07-21 03:58] LABS: Lactic Acid 1.5 mmol/L (0.5-2.2)
[2021-07-21 04:03] LABS: ALT (SGPT) 21 U/L (8-55); AST (SGOT) 24 U/L (5-34); Albumin 2.8 g/dL (3.4-4.8); Alkaline Phosphatase 59 U/L (40-110); Anion Gap 14 mmol/L (10-20); BUN (Urea Nitrogen) 73 mg/dL (8.4-25.7); Bilirubin, Total 0.6 mg/dL (0.2-1.2); Calc. Creatinine Clearance 20 mL/min (70-130); Calcium 8.2 mg/dL (7.8-10.44); Carbon Dioxide 20 mmol/L (23-31); Chloride 104 mmol/L (98-107); Globulin 2.6 g/dL (2.4-3.5); Glucose 96 mg/dL (83-110); Potassium 4.7 mmol/L (3.5-5.1); Protein, Total 5.4 g/dL (5.8-8.1); Sodium 133 mmol/L (136-145)
[2021-07-21 04:06] LABS: PTT 65.2 sec (22.9-36.1)
[2021-07-21 04:07] LABS: Prothrombin Time 136.2 sec (12.0-14.7)
[2021-07-21 04:08] LABS: INR-International Normal Ratio 18.8
[2021-07-21] MEDS: Sodium Chloride 0.9% 1,000 ML IV SCH ×3 (04:18→23:47)
[2021-07-21] MEDS ORDERED: Rosuvastatin 10 MG TAB PO SCH (09:00)
[2021-07-21] MEDS ORDERED: Furosemide 40 MG TAB PO SCH (09:00)
[2021-07-21] MEDS: Pantoprazole 40 MG VIAL IVP SCH ×2 (09:12→20:37)
[2021-07-21] MEDS: Rosuvastatin 20 MG TAB PO SCH (20:37)
[2021-07-22 05:25] LABS: #Eosinphils 0.1 thou/uL (0.0-0.7); #Lymphocytes 1.5 thou/uL (1.20-3.40); #Monocytes 0.6 thou/uL (0.11-0.59); #Neutrophils 9.1 thou/uL (1.40-6.50); %Basophils 0.1 % (0.0-1.0); %Eosinophils 0.6 % (0.0-10.0); %Lymphocytes 13.3 % (21.0-51.0); %Monocytes 4.9 % (0.0-10.0); %Neutrophils 81.1 % (42.0-75.0); Hemoglobin 11.6 g/dL (14.0-18.0); Mean Corpuscular HGB CONC 33.7 g/dL (32.0-36.0); Mean Corpuscular Hemoglobin 33.7 pg (27.0-31.0); Platelet Count 202 thou/uL (130-400); RBC Distribution Width 13.3 % (11.5-14.5); Red Blood Cell (RBC) Count 3.44 mill/uL (4.70-6.10); White Blood Cell (WBC) Count 11.2 thou/uL (4.8-10.8)
[2021-07-22 05:41] LABS: Prothrombin Time 87.1 sec (12.0-14.7)
[2021-07-22 05:42] LABS: INR-International Normal Ratio 10.7
[2021-07-22 05:47] LABS: ALT (SGPT) 21 U/L (8-55); AST (SGOT) 21 U/L (5-34); Albumin 2.6 g/dL (3.4-4.8); Alkaline Phosphatase 66 U/L (40-110); Anion Gap 12 mmol/L (10-20); BUN (Urea Nitrogen) 62 mg/dL (8.4-25.7); Bilirubin, Total 0.6 mg/dL (0.2-1.2); Calc. Creatinine Clearance 20 mL/min (70-130); Calcium 8.3 mg/dL (7.8-10.44); Carbon Dioxide 19 mmol/L (23-31); Chloride 107 mmol/L (98-107); Globulin 2.7 g/dL (2.4-3.5); Glucose 92 mg/dL (83-110); Potassium 4.5 mmol/L (3.5-5.1); Protein, Total 5.3 g/dL (5.8-8.1); Sodium 133 mmol/L (136-145)
[2021-07-22] MEDS: Sodium Chloride 0.9% 1,000 ML IV SCH ×2 (09:30→19:56)
[2021-07-22] MEDS: Pantoprazole 40 MG VIAL IVP SCH ×2 (09:30→19:56)
[2021-07-22] MEDS: Rosuvastatin 20 MG TAB PO SCH (19:56)
[2021-07-23 04:10] LABS: #Basophils 0.1 thou/uL (0.0-0.2); #Eosinphils 0.2 thou/uL (0.0-0.7); #Lymphocytes 1.6 thou/uL (1.20-3.40); #Monocytes 0.7 thou/uL (0.11-0.59); #Neutrophils 8.1 thou/uL (1.40-6.50); %Basophils 0.5 % (0.0-1.0); %Eosinophils 1.8 % (0.0-10.0); %Lymphocytes 14.8 % (21.0-51.0); %Monocytes 6.3 % (0.0-10.0); %Neutrophils 76.6 % (42.0-75.0); Hemoglobin 11.3 g/dL (14.0-18.0); Mean Corpuscular HGB CONC 34.1 g/dL (32.0-36.0); Mean Corpuscular Hemoglobin 34.1 pg (27.0-31.0); Mean Platelet Volume 9.1 fL (7.4-10.4); Platelet Count 215 thou/uL (130-400); RBC Distribution Width 13.4 % (11.5-14.5); Red Blood Cell (RBC) Count 3.31 mill/uL (4.70-6.10); White Blood Cell (WBC) Count 10.5 thou/uL (4.8-10.8)
[2021-07-23 04:41] LABS: ALT (SGPT) 22 U/L (8-55); AST (SGOT) 20 U/L (5-34); Albumin 2.3 g/dL (3.4-4.8); Alkaline Phosphatase 69 U/L (40-110); Anion Gap 12 mmol/L (10-20); BUN (Urea Nitrogen) 54 mg/dL (8.4-25.7); Bilirubin, Total 0.6 mg/dL (0.2-1.2); Calc. Creatinine Clearance 23 mL/min (70-130); Carbon Dioxide 18 mmol/L (23-31); Chloride 107 mmol/L (98-107); Globulin 2.5 g/dL (2.4-3.5); Glucose 99 mg/dL (83-110); Protein, Total 4.8 g/dL (5.8-8.1); Sodium 133 mmol/L (136-145)
[2021-07-23 08:21] LABS: Prothrombin Time 46.4 sec (12.0-14.7)
[2021-07-23 08:23] LABS: INR-International Normal Ratio 4.8
[2021-07-23] MEDS: Pantoprazole 40 MG VIAL IVP SCH ×2 (08:46→20:17)
[2021-07-23] MEDS: Sodium Chloride 0.9% 1,000 ML IV SCH ×2 (13:05→20:17)
[2021-07-23] MEDS ORDERED: Rosuvastatin 20 MG TAB ONE (20:08)
[2021-07-23] MEDS ORDERED: Pantoprazole 40 MG VIAL ONE (20:08)
[2021-07-23] MEDS: Rosuvastatin 20 MG TAB PO SCH (20:17)
[2021-07-24 04:04] LABS: #Basophils 0.1 thou/uL (0.0-0.2); #Eosinphils 0.2 thou/uL (0.0-0.7); #Lymphocytes 1.9 thou/uL (1.20-3.40); #Monocytes 0.7 thou/uL (0.11-0.59); #Neutrophils 9.5 thou/uL (1.40-6.50); %Basophils 0.4 % (0.0-1.0); %Eosinophils 1.8 % (0.0-10.0); %Lymphocytes 15.6 % (21.0-51.0); %Monocytes 5.8 % (0.0-10.0); %Neutrophils 76.3 % (42.0-75.0); Hemoglobin 12.3 g/dL (14.0-18.0); Mean Corpuscular HGB CONC 33.4 g/dL (32.0-36.0); Mean Corpuscular Hemoglobin 34.1 pg (27.0-31.0); Mean Platelet Volume 8.8 fL (7.4-10.4); Platelet Count 250 thou/uL (130-400); RBC Distribution Width 13.8 % (11.5-14.5); White Blood Cell (WBC) Count 12.4 thou/uL (4.8-10.8)
[2021-07-24 04:05] LABS: INR-International Normal Ratio 3.2; PTT 47.2 sec (22.9-36.1); Prothrombin Time 33.6 sec (12.0-14.7)
[2021-07-24 04:12] LABS: ALT (SGPT) 21 U/L (8-55); AST (SGOT) 23 U/L (5-34); Albumin 2.3 g/dL (3.4-4.8); Alkaline Phosphatase 85 U/L (40-110); Anion Gap 12 mmol/L (10-20); BUN (Urea Nitrogen) 41 mg/dL (8.4-25.7); Bilirubin, Total 0.7 mg/dL (0.2-1.2); Calc. Creatinine Clearance 29 mL/min (70-130); Calcium 7.9 mg/dL (7.8-10.44); Carbon Dioxide 14 mmol/L (23-31); Chloride 108 mmol/L (98-107); Globulin 2.6 g/dL (2.4-3.5); Glucose 98 mg/dL (83-110); Potassium 3.9 mmol/L (3.5-5.1); Protein, Total 4.9 g/dL (5.8-8.1); Sodium 130 mmol/L (136-145)
[2021-07-24] MEDS: Pantoprazole 40 MG VIAL IVP SCH ×2 (08:48→20:45)
[2021-07-24] MEDS: Sodium Chloride 0.9% 1,000 ML IV SCH (08:49)
[2021-07-24 14:09] VITALS: BMI 22.9
[2021-07-24] MEDS: Rosuvastatin 20 MG TAB PO SCH (20:45)
[2021-07-25] MEDS ORDERED: Melatonin 3 MG TAB PO PRN (00:43)
[2021-07-25 04:48] LABS: #Basophils 0.1 thou/uL (0.0-0.2); #Eosinphils 0.1 thou/uL (0.0-0.7); #Lymphocytes 1.6 thou/uL (1.20-3.40); #Monocytes 0.7 thou/uL (0.11-0.59); #Neutrophils 10.3 thou/uL (1.40-6.50); %Basophils 0.4 % (0.0-1.0); %Eosinophils 1.1 % (0.0-10.0); %Lymphocytes 12.5 % (21.0-51.0); %Monocytes 5.5 % (0.0-10.0); %Neutrophils 80.5 % (42.0-75.0); Hemoglobin 12.5 g/dL (14.0-18.0); Mean Corpuscular HGB CONC 33.8 g/dL (32.0-36.0); Mean Corpuscular Hemoglobin 33.9 pg (27.0-31.0); Mean Platelet Volume 8.2 fL (7.4-10.4); Platelet Count 264 thou/uL (130-400); RBC Distribution Width 13.8 % (11.5-14.5); Red Blood Cell (RBC) Count 3.69 mill/uL (4.70-6.10); White Blood Cell (WBC) Count 12.8 thou/uL (4.8-10.8)
[2021-07-25 04:59] LABS: INR-International Normal Ratio 2.7; Prothrombin Time 29.3 sec (12.0-14.7)
[2021-07-25 05:00] LABS: PTT 42.9 sec (22.9-36.1)
[2021-07-25 05:01] LABS: ALT (SGPT) 23 U/L (8-55); AST (SGOT) 23 U/L (5-34); Albumin 2.5 g/dL (3.4-4.8); Alkaline Phosphatase 94 U/L (40-110); Anion Gap 12 mmol/L (10-20); BUN (Urea Nitrogen) 34 mg/dL (8.4-25.7); Bilirubin, Total 0.8 mg/dL (0.2-1.2); Calc. Creatinine Clearance 30 mL/min (70-130); Calcium 8.2 mg/dL (7.8-10.44); Carbon Dioxide 17 mmol/L (23-31); Chloride 106 mmol/L (98-107); Globulin 2.7 g/dL (2.4-3.5); Glucose 100 mg/dL (83-110); Protein, Total 5.2 g/dL (5.8-8.1); Sodium 131 mmol/L (136-145)
[2021-07-25] MEDS: Potassium Chloride 20 MEQ TAB PO SCH (08:54)
[2021-07-25] MEDS: Pantoprazole 40 MG VIAL IVP SCH (08:54)
[2021-07-25] MEDS: Rosuvastatin 20 MG TAB PO SCH (20:59)
[2021-07-26 05:20] LABS: INR-International Normal Ratio 2.3; Prothrombin Time 25.5 sec (12.0-14.7)
[2021-07-26 05:27] LABS: Hemoglobin 11.9 g/dL (14.0-18.0); Mean Corpuscular HGB CONC 32.7 g/dL (32.0-36.0); Mean Corpuscular Hemoglobin 32.5 pg (27.0-31.0); Mean Corpuscular Volume 99.2 fL (78.0-98.0); Mean Platelet Volume 8.5 fL (7.4-10.4); Platelet Count 265 thou/uL (130-400); RBC Distribution Width 14.3 % (11.5-14.5); Red Blood Cell (RBC) Count 3.65 mill/uL (4.70-6.10); White Blood Cell (WBC) Count 12.1 thou/uL (4.8-10.8)
[2021-07-26 05:30] LABS: ALT (SGPT) 33 U/L (8-55); AST (SGOT) 37 U/L (5-34); Albumin 2.6 g/dL (3.4-4.8); Alkaline Phosphatase 133 U/L (40-110); Anion Gap 10 mmol/L (10-20); BUN (Urea Nitrogen) 34 mg/dL (8.4-25.7); Bilirubin, Total 0.7 mg/dL (0.2-1.2); Calc. Creatinine Clearance 32 mL/min (70-130); Calcium 8.6 mg/dL (7.8-10.44); Carbon Dioxide 20 mmol/L (23-31); Chloride 105 mmol/L (98-107); Globulin 2.9 g/dL (2.4-3.5); Glucose 110 mg/dL (83-110); Potassium 4.4 mmol/L (3.5-5.1); Protein, Total 5.5 g/dL (5.8-8.1); Sodium 131 mmol/L (136-145)
[2021-07-26 06:05] LABS: #Eosinphils 0.1 thou/uL (0.0-0.7); #Lymphocytes 1.2 thou/uL (1.20-3.40); #Monocytes 0.8 thou/uL (0.11-0.59); %Eosinophils 0.9 % (0.0-10.0); %Lymphocytes 9.9 % (21.0-51.0); %Monocytes 6.2 % (0.0-10.0)
[2021-07-26 06:06] LABS: MDiff Complete? YES
[2021-07-26] MEDS ORDERED: Warfarin Sodium 5 MG TAB PO SCH (10:45)
[2021-07-26] MEDS: Potassium Chloride 20 MEQ TAB PO SCH (10:52)
[2021-07-26 16:32] LABS: SARS-CoV-2 NAA Rapid Test Not Detected (NotDetected)
[2021-07-26 19:46] VITALS: BP 107/56; TEMP 98
[2021-07-26] MEDS: Rosuvastatin 20 MG TAB PO SCH (19:46)
[2021-07-27] MEDS ORDERED: Warfarin Sodium 5 MG TAB PO SCH (17:00)
== END 2021-07-26 22:00 | disposition short-term general hospital (02) | DRG 280 ==
LOC: ERS 11:24 → IMCU/EMU 14:26 → 2NO 07-24 17:44
PROVIDERS: ADMIT Student in an Organized Health Care Education/Training Program; ATTEND Student in an Organized Health Care Education/Training Program
DX: I08.0 Rheumatic disorders of both mitral and aortic valves (principal); Z66 Do not resuscitate; Z20.822 Contact with and (suspected) exposure to COVID-19; R57.0 Cardiogenic shock; I21.4 Non-ST elevation (NSTEMI) myocardial infarction; I50.22 Chronic systolic (congestive) heart failure; N18.4 Chronic kidney disease, stage 4 (severe); I13.0 Hypertensive heart and chronic kidney disease with heart failure and stage 1 through stage 4 chronic kidney disease, or unspecified chronic kidney disease; N17.9 Acute kidney failure, unspecified; I77.2 Rupture of artery; I48.21 Permanent atrial fibrillation; E46 Unspecified protein-calorie malnutrition; I42.0 Dilated cardiomyopathy; I25.10 Atherosclerotic heart disease of native coronary artery without angina pectoris; D63.1 Anemia in chronic kidney disease; F41.9 Anxiety disorder, unspecified; I25.5 Ischemic cardiomyopathy; Z79.899 Other long term (current) drug therapy; Z79.82 Long term (current) use of aspirin; Z79.01 Long term (current) use of anticoagulants; Z95.5 Presence of coronary angioplasty implant and graft; Z68.25 Body mass index [BMI] 25.0-25.9, adult
CPT/HCPCS: 36415; 70450; 71045; 80053; 81003; 81015; 82533; 82553; 83605; 83735; 83880; 84484; 85025; 85610; 85730; 86850; 86900; 86901; 87040; 87086; 93005; 93306; 96365; 96367; C9113; J0692; J3370; J7050; U0002